=== PATIENT | female | born 1950 | race Caucasian/White ===

== ENCOUNTER 2025-06-06 07:47 | Outpatient (CLI) | payer MEDICARE, SELFPAY ==
--- NOTE | 2025-06-06 07:45 | RT.EKG_ITS ---
APPROVED REPORT Exam: Resting ECG Reason for Exam: HTN Patient Location: O HR:64 bpm ECG Measurements Heart Rate 64 AXIS OR 166 P -12 QRSd 111 QRS 2 QT 453 T 86 QTc 468 Conclusion Sinus rhythm...normal P axis, V-rate 50- 99 Normal Electrocardiogram
== END 2025-06-06 07:48 | disposition home or self-care (01) ==
LOC: DI.CARD 07:48
PROVIDERS: PCP Nurse Practitioner; Visit Provider Registered Nurse
DX: I51.89 Other ill-defined heart diseases (principal); I10 Essential (primary) hypertension; I35.8 Other nonrheumatic aortic valve disorders
CPT/HCPCS: 93010

== ENCOUNTER → 2025-06-06 10:59 | Outpatient (BNVA) | payer MEDICARE, SELFPAY | PROVIDERS: PCP Nurse Practitioner; Referring Provider Nurse Practitioner; Visit Provider Registered Nurse | DX: I71.21 Aneurysm of the ascending aorta, without rupture (principal); I35.8 Other nonrheumatic aortic valve disorders; I10 Essential (primary) hypertension; I51.89 Other ill-defined heart diseases; Z79.02 Long term (current) use of antithrombotics/antiplatelets | CPT/HCPCS: 99204; 93005 ==